=== PATIENT | male | born 1995 ===

== ENCOUNTER → 2021-08-21 15:47 | Outpatient (BNVA) | payer MEDICAID, SELFPAY | PROVIDERS: Visit Provider Surgery | DX: K42.9 Umbilical hernia without obstruction or gangrene (principal) | CPT/HCPCS: 99202 ==

== ENCOUNTER 2021-10-05 11:14 | Emergency (ER) | payer MEDICAID, SELFPAY ==
[2021-10-05 11:25] VITALS: BP 131/86; PULSE 104; RESP 20; TEMP 36.6; O2SAT 99; BMI 27.3
--- NOTE | 2021-10-05 13:07 | ED.URI ---
HPI - URI/Sore Throat General Chief Complaint: Upper Respiratory Symptoms Stated Complaint: sore throat body aches fever COVID exposed Time Seen by Provider: 10/05/21 12:13 Source: patient Mode of arrival: ambulatory Limitations: no limitations History of Present Illness HPI Narrative: 26-year-old male status he has 2 coworkers that test post COVID he has been having fever body aches nausea vomiting cough. States he is vaccinated for COVID denies any falls or injuries he states he is not taking medications he does smoke pack of cigarettes a day. MD elicited complaint: fever, cough, sore throat and sinus pain Related Data Home Medications Medication Instructions Recorded Confirmed No Known Home Meds 08/21/21 08/21/21 Allergies Allergy/AdvReac Type Severity Reaction Status Date / Time No Known Allergies Allergy Unverified 06/16/20 17:41 Review of Systems Review of Systems: Review of systems: General: Fever cough and body aches with likely COVID infection he denies any falls Musculoskeletal: Denies back pain or or other injuries HEENT: headache, runny nose, ear pain Respiratory: shortness of breath, cough Cardiovascular: no chest pain or palpitations : denies dysuria, frequency Abdomen: nausea vomiting denies abdominal pain Extremities: no swelling, no pain Skin: no diaphoresis Yes all other systems are reviewed and are negative PMFSH Past Medical History Medical History (Updated 10/05/21 @ 13:10 by Fawad Berrios DO) Umbilical hernia Surgical History History of surgical procedure on mouth Social History Social History Alcohol intake: never Patient Tobacco Use Status: Never used Tobacco Physical Exam Vital Signs: Vital Signs: Last Vital Signs Temp 98 F 10/05/21 11:25 Pulse 104 H 10/05/21 11:25 Resp 20 10/05/21 11:25 BP 131/86 10/05/21 11:25 Pulse Ox 99 10/05/21 11:25 BMI result Body Mass Index 27.3 General: Well-appearing well-nourished in no signs of distress HEENT: Normocephalic atraumatic Neck: No signs of JVD, no masses no tenderness or lymphadenopathy Cardiovascular: Regular rate and rhythm Respiratory: Clear to auscultation bilaterally Abdomen: Soft nontender no masses Extremities: Normal pedal pulses no signs of edema Skin: Dry warm no rashes Back: No tenderness full ROM MDM - URI/Sore Throat MDM Narrative Medical decision making narrative: 26-year-old male exiting for COVID looks well I will give patient Tylenol he has not take anything past several days his last episode of vomiting 2 days ago he has been tolerating fluids and food well. In this patient who sent him anything that I will discharge home. Discharge Plan Discharge Clinical Impression: COVID-19 Patient Disposition: Home, Self-Care Instructions: COVID-19 (Coronavirus Disease 2019) (ED) Additional Instructions: Please call follow with her doctor if you have any other concerns please not hesitate to come back the emergency department. Prescriptions: No Action No Known Home Meds RF: 0
[2021-10-05 13:08] LABS: COVID-19 Test Positive (Negative); IDNOW Serial# 9DD0AD1C
[2021-10-05] MEDS: Acetaminophen 325 MG TABLET 650 MG PO (13:40)
[2021-10-05 13:46] LABS: Strep A Nucleic Acid Negative (Negative)
== END 2021-10-05 14:06 | disposition home or self-care (01) ==
LOC: HO.ED 13:24
PROVIDERS: Physician Assistant Medical; Emergency Provider Student in an Organized Health Care Education/Training Program
DX: U07.1 COVID-19 (principal)
CPT/HCPCS: 87635; 87651; 99283; 99284

== ENCOUNTER 2022-05-28 09:02 | Outpatient (REF) | payer MEDICAID, SELFPAY ==
[2022-05-28 09:29] LABS: COVID-19 Test Negative (Negative); IDNOW Serial# 55D5AD1C
== END 2022-05-28 09:03 | disposition home or self-care (01) ==
LOC: HO.LAB 09:02
PROVIDERS: Visit Provider Internal Medicine
DX: Z20.822 Contact with and (suspected) exposure to COVID-19 (principal)
CPT/HCPCS: 87635; C9803

== ENCOUNTER 2022-06-18 08:22 | Outpatient (REF) | payer MEDICAID, SELFPAY ==
[2022-06-18 08:59] LABS: COVID-19 Test Negative (Negative); IDNOW Serial# 9DB6401D
== END 2022-06-18 08:23 | disposition home or self-care (01) ==
LOC: HO.LAB 08:22
PROVIDERS: Visit Provider Internal Medicine
DX: Z20.822 Contact with and (suspected) exposure to COVID-19 (principal)
CPT/HCPCS: 87635; C9803

== ENCOUNTER 2022-06-27 08:20 | Outpatient (REF) | payer MEDICAID, SELFPAY ==
[2022-06-27 09:11] LABS: COVID-19 Test Negative (Negative)
== END 2022-06-27 08:21 | disposition home or self-care (01) ==
LOC: HO.LAB 08:20
PROVIDERS: Visit Provider Internal Medicine
DX: Z20.822 Contact with and (suspected) exposure to COVID-19 (principal)
CPT/HCPCS: 87635; C9803

== ENCOUNTER 2022-06-27 08:46 | Emergency (ER) | payer MEDICAID, SELFPAY ==
--- NOTE | ~2022-06-27 | XR_ITS ---
EXAMINATION: XR CHEST CLINICAL INFORMATION: Cough COMPARISON: None TECHNIQUE: Frontal view of the chest was obtained. FINDINGS: The lungs are clear. There is no airspace consolidation or groundglass opacity or effusion. The heart is normal in size. The hilar and mediastinal contours are normal. The costophrenic sulci are clear. The hilar and mediastinal contours and visualized bony structures are unremarkable. XR/XR chest 1V IMPRESSION: Unremarkable examination.
[2022-06-27 10:07] VITALS: BP 117/64; PULSE 67; RESP 18; TEMP 36.4; O2SAT 99; BMI 27.3
[2022-06-27 11:29] LABS: COVID-19 Test Negative (Negative); IDNOW Serial# 9DD0AD1C
--- NOTE | 2022-06-27 12:15 | ED_ITS ---
HPI - URI/Sore Throat General Chief Complaint: Upper Respiratory Symptoms Stated Complaint: sore throat, body aches Time Seen by Provider: 06/27/22 11:06 Source: patient Mode of arrival: ambulatory History of Present Illness HPI Narrative: 26-year-old male with no significant past medical history presenting to the ED complaining of subjective fever, chills, dry cough, rhinorrhea, sore throat, myalgias x1 week. Admits was exposed to COVID-19. Tested negative for COVID-19 on Saturday. Denies SOB, CP, abdominal pain, nausea/vomiting MD elicited complaint: fever, cough, sore throat, rhinorrhea and nasal congestion Onset (ago): week(s) Related Data Home Medications Medication Instructions Recorded Confirmed No Known Home Meds 08/21/21 08/21/21 Allergies Allergy/AdvReac Type Severity Reaction Status Date / Time No Known Allergies Allergy Verified 06/27/22 10:07 Review of Systems Review of Systems: Constitutional: +Subj Fever, + Chills ENT/Mouth: No Ear Pain, + Nasal Congestion, + sore throat, + Rhinorrhea, No Swallowing Difficulty Cardiovascular: No Chest Pain, No SOB Respiratory: + Cough, No Sputum, No Wheezing Gastrointestinal: No Nausea, No Vomiting, No Diarrhea, No Constipation, No Abdominal pain Genitourinary: No Dysuria, No Urinary Frequency, No Hematuria, No Urgency, No Flank Pain Musculoskeletal: No joint pain, + Myalgias, No Joint Swelling Skin: No Skin Lesions, No rash Neuro: No Weakness, No Numbness, No Paresthesias Yes all other systems are reviewed and are negative Constitutional: Constitutional: Reports as per [facility] Past Medical History Attestation statement: The following information was validated with the patient. Medical History Umbilical hernia Surgical History History of surgical procedure on mouth Social History Social History Alcohol intake: never Patient Tobacco Use Status: Never used Tobacco Advance Directives: No Advance Directives Information Provided: No Physical Exam Vital Signs: Vital Signs: Last Vital Signs Temp 97.6 F 06/27/22 10:07 Pulse 67 06/27/22 10:07 Resp 18 06/27/22 10:07 BP 117/64 06/27/22 10:07 Pulse Ox 99 06/27/22 10:07 O2 Del Method 06/27/22 10:07 BMI result Body Mass Index 27.3 Const: General: cooperative, healthy appearing and no acute distress Orientation/consciousness: patient oriented x3 Limitations: no limitations HEENT: Head: Yes normal to inspection and Yes atraumatic Ears: hearing grossly normal bilaterally and TM's normal bilaterally General nose exam: Normal external nose present Face and sinus: Yes normal facial exam Throat: Yes posterior oropharynx normal, Yes tonsils normal, Yes uvula midline, No abnormal tonsil and No peritonsillar mass Eyes: General: appearance normal, both eyes and all related structures EOM: EOMs intact bilaterally Neck: Neck: Yes normal visual inspection and Yes no meningeal signs Resp: Effort & Inspection: normal respiratory effort and no respiratory distress Auscultation: clear to auscultation bilaterally, no crackles, no rales, no rhonchi and no wheezes Cardio: Rate: regular rate Heart sounds: S1 normal heart sound present and S2 normal heart sound present GI: Inspection: Yes normal to inspection Palpation (GI): Soft to palpation, nontender, no guarding and not rigid Skin: Rashes: no rashes Wounds: no wounds Neuro: General: patient oriented x3, tone normal and no meningeal signs Gait exam (Neuro): Normal gait present Extrem: General: Yes normal to inspection Course Course Course Narrative: XR chest 1V IMPRESSION: Unremarkable examination. -COVID-19 negative MDM - URI/Sore Throat MDM Narrative Medical decision making narrative: 26-year-old male with no significant past medical history presenting to the ED complaining of subjective fever, chills, dry cough, rhinorrhea, sore throat, myalgias x1 week. Exam vital signs stable, NAD, nontoxic appearing, exam nonfocal, lungs CTA. Concern for viral illness including COVID-19 vs bronchitis. Rule out pneumonia. Low suspicion for ACS/PE Plan: COVID-19 testing, CXR Differential Diagnosis Differential diagnosis: Likely upper respiratory infection, sinusitis, viral infection, bronchitis, influenza and pharyngitis Medical Records Attestation: I reviewed the patient's medical records. Lab Data Attestation: I reviewed the patient's lab results. Labs: Lab Results 06/27/22 Range/Units 10:48 COVID-19 ([facility]ENNY) Negative (Negative) COVID-19 Clin Com See Note Discharge Plan Discharge Clinical Impression: Viral infection Patient Disposition: Home, Self-Care Instructions: Viral Syndrome (ED) Additional Instructions: Your chest x-ray is unremarkable. you tested negative for COVID-19 and strep throaat You likely have a viral illness Rest. Stay hydrated. Take Tylenol and Motrin as needed. Follow up with her doctor. Return to the ED symptoms persist or worsen Prescriptions: No Action No Known Home Meds Referrals: [facility] [Primary Care Provider] - 1 week Stand Alone Forms: Work/School Release
[2022-06-27 13:13] LABS: Strep A Nucleic Acid Negative (Negative)
[2022-06-27 13:55] VITALS: BP 119/72; PULSE 68; RESP 18; TEMP 36.7; O2SAT 100
== END 2022-06-27 13:58 | disposition home or self-care (01) ==
PROVIDERS: Physician Assistant; Emergency Provider Emergency Medicine
DX: B34.9 Viral infection, unspecified (principal); J02.9 Acute pharyngitis, unspecified; Z20.822 Contact with and (suspected) exposure to COVID-19
CPT/HCPCS: 36415; 71045; 87635; 87651; 99283

== ENCOUNTER → 2022-08-08 14:05 | Outpatient (BNVA) | payer MEDICAID, SELFPAY | PROVIDERS: Visit Provider Surgery | DX: K42.9 Umbilical hernia without obstruction or gangrene (principal) | CPT/HCPCS: 99212 ==

== ENCOUNTER 2022-08-21 06:36 | Day surgery (SDC) | payer MEDICAID, SELFPAY ==
[2022-08-14 12:29] VITALS: BMI 26.1
--- NOTE | 2022-08-20 08:49 | HO.ANESPROP2 ---
Documented by User: Tamara Mccauley NP 08/20/22 08:49 HPI - Anesthesia Eval Consult details Narrative: 27yo M for Hernia Repair Umbilical, possible mesh PMFSH Active Problems Active Problems: All Active Problems (Updated 08/14/22 @ 12:26 by Suma Jean, LORRI) COVID-19 (Acute) Umbilical hernia (Acute) Past Medical History Medical History History of COVID-19 Umbilical hernia Surgical History Surgical History History of surgical procedure on mouth Social History Social History Alcohol intake: never Patient Tobacco Use Status: Never used Tobacco Meds Allergies Allergy/AdvReac Type Severity Reaction Status Date / Time No Known Allergies Allergy Verified 06/27/22 10:07 Exam Exam Date and Time: August 20, 2022 0849 Height,Weight and Vital Signs: Height 5 ft 8 in Weight 78.018 kg Assessment and Plan Assessment Anesthesia Assessment: Chart Reviewed Documented by User: Dante Ortiz MD 08/21/22 16:05 PMFSH Past Medical History Medical History History of COVID-19 Umbilical hernia Family History Family history of problems with anesthesia: No Surgical History Surgical History History of surgical procedure on mouth History of Problems with Anesthesia: No Social History Social History Alcohol intake: never Patient Tobacco Use Status: Never used Tobacco Meds Allergies Allergy/AdvReac Type Severity Reaction Status Date / Time No Known Allergies Allergy Verified 06/27/22 10:07 Exam Airway Mallampati Class: III TM Dist: >3cm Neck ROM: Full Loose/Missing/Broken Teeth: Yes Heart: S1,S2 Lungs: b/l breath sounds Assessment and Plan Assessment Anesthesia Assessment: Anesthesia Plan Discussed Final Anesthetic Review Family History of Problems with Anesthesia: No History of Problems with Anesthesia: No NPO: Yes ASA Class: II Final Preanesthetic Review: Meds/Allgs Chart Reviewed, Consent Obtained/Reviewed and Anes Risks/Benef Reviewed Patient Risk: Intermediate Procedure Risk: Intermediate Anesthetic Plan Anesthetic Plan: GA Disposition: Standard PACU
[2022-08-21] VITALS (17 sets, daily range): BP systolic 108–123; BP diastolic 64–74; PULSE 47–85; RESP 15–18; TEMP 36.4–37.1; O2SAT 94–100; BMI 25.5; BMI 26.3
[2022-08-21] MEDS: Lactated Ringers 1,000 ML 100 ML IVCONT (07:12)
--- NOTE | 2022-08-21 08:37 | MHC.SHP ---
Pre-Procedural Eval Section A Date of Service: 08/21/22 The patient is an INPATIENT: No Changes since office visit: No Cold of Flu in the past 2 weeks, No New Medical Problems, No Changes in Medication and No Patient answered all questions The History & Physical has been completed within 30 days and I have reviewed it.: Yes Section B Chief Complaint: Umbilical hernia without obstruction or gangrene Allergies: Allergies Allergy/AdvReac Type Severity Reaction Status Date / Time No Known Allergies Allergy Verified 06/27/22 10:07 Plan I have reviewed the history and physical and performed a pertinent physical examination on my patient. No changes have occurred unless specified.
--- NOTE | 2022-08-21 09:50 | W.PM.OPN ---
Operative Note Operative Note Date of Service: 08/21/22 Narrative: Preop diagnosis: Umbilical hernia Postop diagnosis: The same Procedure: Repair of umbilical hernia with Ventralex mesh Surgeon: Ramon Meraz MD assistant store director: SARAH Springer The patient is a 27-year-old male with a small umbilical hernia. In view of symptoms he wanted to proceed with repair. He understood the technique of the procedure. He was aware of the risks, benefits, and alternatives. He was brought to the operating room and placed supine under general anesthesia via laryngeal mask airway. The abdomen was prepped and draped in the usual sterile fashion. A surgical time-out was done. The patient received cefazolin 2 g IV preoperatively. I infiltrated the planned line of vision with lidocaine 1%. I made a small skin incision in the infraumbilical margin in a transverse curvilinear fashion using blade 15. This was carried down with electrocautery through the full-thickness of the skin and part of the subcutaneous fat. I then proceeded to dissect the umbilicus off as a flap using sharp dissection with Metzenbaum scissor to lift this off of the hernia contents. The hernia contents were seen and was noted to be just fatty tissue. I dissected this down to the fascial defect and divided adhesions to the edges of the fascia using Metzenbaum scissors until I was completely able to reduce this to the defect. I applied Abdelrahman clamps to retract the fascia and exposed underside. I made sure we had good margins for the mesh. I then positioned a small-sized Ventralex mesh under the fascia to cover the defect. I secured the Prolene straps of the mesh to the fascial edge on both sides with Prolene 2 sutures. I closed the fascia with a [id number] Dexon 0 stitch. The umbilicus was tacked down to the fascia with the Dexon 3-0 stitch to re-create the dimple. The subcutaneous layer was reapposed with Dexon 3-0 interrupted sutures. Skin closure was achieved with Dexon 4-0 subcuticular running stitch. The area was infiltrated with Marcaine 0.5% for postop analgesia. Dressings were applied. The procedure was completed. He tolerated the procedure well. There were no immediate complications. Initial and final counts of sponges and instruments were correct. Estimated blood loss less than 5 cc. The patient was extubated the difficulty and transferred to the recovery room with stable vital signs.
[2022-08-21] MEDS: Acetaminophen 325 MG TABLET 650 MG PO (10:29)
[2022-08-21] MEDS: fentaNYL citrate/PF 100 MCG/2 ML VIAL 25 MCG IVPUSH ×3 (10:29→11:11)
[2022-08-21] MEDS: oxyCODONE HCl Immed Release 5 MG TABLET PO (10:30)
[2022-08-21] MEDS: HYDROmorphone HCl 1 MG/ML SYRINGE 0.25 MG IVPUSH (11:42)
== END 2022-08-21 12:25 | disposition home or self-care (01) ==
PROVIDERS: Visit Provider Surgery
PROC: (CPT 49585; principal; 2022-08-21 08:40)
DX: K42.9 Umbilical hernia without obstruction or gangrene (principal)
CPT/HCPCS: 49585; C1781; J0690; J1100; J1170; J2250; J2405; J2795; J3010

== ENCOUNTER 2022-11-26 08:37 | Emergency (ER) | payer MEDICAID, SELFPAY ==
--- NOTE | ~2022-11-26 | XR_ITS ---
EXAMINATION: XR SHOULDER, LEFT CLINICAL INFORMATION: Pain COMPARISON: None TECHNIQUE: AP external rotation, Grashey, scapular Y, and axillary views of the left shoulder. FINDINGS: The bones and soft tissues are normal. No fracture. Glenohumeral and acromioclavicular alignment is anatomic with normal joint space. No abnormal soft tissue calcifications. XR/XR shoulder LT min 2V IMPRESSION: Normal left shoulder.
--- NOTE | ~2022-11-26 | XR_ITS ---
EXAMINATION: XR ELBOW, LEFT CLINICAL INFORMATION: Pain COMPARISON: None TECHNIQUE: AP, lateral, and oblique views of the left elbow. FINDINGS: The bones and soft tissues are normal. No fracture or joint effusion. Alignment is anatomic. Joint spaces are maintained. XR/XR elbow LT min 3V IMPRESSION: Normal left elbow.
--- NOTE | ~2022-11-26 | US_ITS ---
EXAMINATION: US VENOUS WITH DOPPLER UPPER EXTREMITY, left upper extremity CLINICAL INFORMATION: Pain COMPARISON: None TECHNIQUE: Ultrasound of the upper extremity is performed using compression sonography and color and pulse Doppler flow with assessment of augmentation of flow. There is also imaging and Doppler assessment of the jugular and subclavian veins. Spectral analysis with color-flow imaging is performed. FINDINGS: Respiratory variation, normal compression, and augmented flow are noted throughout the upper extremity including the axillary, brachial, cubital, veins. There is normal flow in the internal jugular and subclavian veins. There is no visible deep or superficial thrombophlebitis. Left cephalic vein not visualized. If the patient's symptoms progress, a followup ultrasound in 5 -7 days might be of value to exclude proximal propagation from a nonvisualized distal arm vein. US/US venous duplex UE LT IMPRESSION: No DVT demonstrated in the left upper extremity. Limitation of the study, cephalic vein not visualized.
[2022-11-26 08:41] VITALS: BP 129/81; PULSE 91; RESP 16; TEMP 37; O2SAT 99; BMI 25.8
[2022-11-26 09:54] LABS: Hematocrit 47.4 % (42.0-52.0); Hemoglobin 16.5 g/dl (14.0-18.0); Mean Corpuscular HGB Conc 34.8 g/dl (31.0-36.0); Mean Corpuscular Hemoglobin 31.7 pg (27.0-33.0); Mean Platelet Volume 10.8 fL (9.4-12.4); Platelet Count 248 X10*3/uL (160-400); Red Blood Count 5.21 X10*6/uL (4.60-5.80); Red Cell Distribution Width 11.7 % (11.0-16.0); White Blood Count 12.7 X10*3/uL (4.8-10.8)
[2022-11-26 10:14] LABS: Anion Gap 12 (12-20); Blood Urea Nitrogen 18 mg/dL (9-16); Calcium 9.5 mg/dL (8.4-10.2); Carbon Dioxide 26 mmol/L (22-29); Chloride 106 mmol/L (96-108); Creatinine Clr Calc Pharmacy 126.6; Estimated Glomerular Filt Rate > 60; Glucose Random 98 mg/dL (60-115); Potassium 4.5 mmol/L (3.3-5.1); Sodium 139 mmol/L (135-145)
[2022-11-26 10:30] LABS: Influenza A PCR NEGATIVE (Negative); Influenza B PCR NEGATIVE (Negative); Resp Syncy Virus RNA Qual PCR NEGATIVE (Negative); SARS COV2 PCR INHOUSE NEGATIVE (Negative)
[2022-11-26 10:39] VITALS: BP 111/58; PULSE 61; RESP 14; TEMP 36.8; O2SAT 97
--- NOTE | 2022-11-26 10:57 | ED_ITS ---
HPI - General Adult General Chief complaint: General Medical Stated complaint: l arm pain Time Seen by Provider: 11/26/22 10:31 Source: patient History of Present Illness HPI narrative: Patient states he has had left arm pain for the past few days. Start in his elbow but now is in his whole upper arm including his shoulder. No causative factors or recent injuries or change in activity. No history of similar problems. Father with a history of pain in his joints with a question of gout. Patient does describe recent illness and that yesterday he had nausea vomiting diarrhea with nasal congestion and fever. His arm pain started prior to this. 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 He presents today because it is to the point where he is unable to lift his arm up over his head without pain. Related Data Previous Rx's Medication Instructions Recorded ibuprofen 600 mg tablet 600 mg PO Q6H PRN pain #30 tabs 08/21/22 oxycodone-acetaminophen 5 mg-325 1 tab PO Q4-6H PRN pain #30 tabs 08/21/22 mg tablet (Percocet) cyclobenzaprine 10 mg tablet 10 mg PO TID PRN muscle spasm #20 11/26/22 tabs ibuprofen 800 mg tablet 800 mg PO TID PRN pain #30 tabs 11/26/22 ondansetron 4 mg disintegrating 4 mg PO Q8H PRN nausea and 11/26/22 tablet vomiting #14 tabs Allergies Allergy/AdvReac Type Severity Reaction Status Date / Time No Known Allergies Allergy Verified 09/03/22 14:28 Review of Systems Constitutional: Comments: Fevers and chills yesterday. None today. Cardiovascular: Comments: No chest pain Respiratory: Comments: No cough Gastrointestinal: Comments: Nausea vomiting diarrhea yesterday. No abdominal pain Musculoskeletal: Comments: Left arm pain as described Neurologic: Comments: No focal weakness PMFSH Past Medical History Medical History History of COVID-19 Umbilical hernia Surgical History History of surgical procedure on mouth Social History Social History Alcohol intake: never Patient Tobacco Use Status: Never used Tobacco Smoked in Last 30 Days: Yes Substance Use Type: Marijuana Advance Directives: No Advance Directives Information Provided: No Physical Exam ED Vital Signs: Vital Signs - 24 hr 11/26/22 08:41 11/26/22 10:39 11/26/22 12:32 Temperature 98.6 F 98.2 F 97.5 F Pulse Rate 91 61 57 Respiratory Rate 16 14 16 Blood Pressure 129/81 111/58 L 141/69 H Pulse Oximetry 99 97 99 Oxygen Delivery Method Room Air Room Air Room Air BMI result Body Mass Index 25.8 Const Other: Awake and alert. No acute distress Resp Other: Clear and equal bilaterally Cardio Other: A right regular rate and rhythm without murmurs rubs gallops GI Other: Abdomen soft nontender nondistended Skin Other: Warm pink and dry without rash. He does not have increased warmth or erythema in his left arm. Neuro Other: No focal deficits Extrem Other: Left arm with limited range of motion at shoulder secondary to discomfort. No crepitus or deformity noted. No obvious joint effusion. Left elbow also with mildly decreased range of motion and some pain on range of motion. There is no obvious effusion swelling or deformity. Distal circulation sensation motor is all intact Medications Administered Discontinued Medications Generic Name Dose Route Start Last Admin Trade Name Freq PRN Reason Stop Dose Admin Sodium Chloride 1,000 mls @ 999 mls/hr 11/26/22 11:00 11/26/22 12:26 Ns IV 11/26/22 12:00 999 mls/hr .Q1H1M BARTOLOME Administration Ketorolac Tromethamine 30 mg 11/26/22 10:53 11/26/22 12:23 Ketorolac Tromethamine 15 Mg/Ml Vial IVPUSH 11/26/22 10:54 30 mg ONCE ONE Administration Ondansetron HCl 4 mg 11/26/22 10:53 11/26/22 12:23 Ondansetron Hcl 4 Mg/2 Ml Vial IVPUSH 11/26/22 10:54 4 mg ONCE ONE Administration Medical Decision Making Medical Decision Making MDM Narrative: Patient with atraumatic left upper arm pain including elbow and shoulder joints. No obvious clinical evidence for infection. He has secondary issue of nausea vomiting diarrhea with fevers that started yesterday, this appears to be u nrelated to his arm pain is it started afterwards and is improving little bit per patient. Rhinorrhea as other complaint. Will treat with IV fluids and anti-inflammatories. X-ray and ultrasound to rule out DVT and or arthritic changes. Other elements for differential would be gout, line, septic joint, all of which appear very unlikely based on exam. Will hold off on further lab work at this time. 13:38. Patient is feeling better. Ultrasound is normal without evidence for DVT. X-ray is likewise are normal. Stable for discharge home Lab Data 11/26/22 09:48 11/26/22 09:48 Labs: Lab Results 11/26/22 11/26/22 11/26/22 Range/Units 09:48 09:48 09:48 WBC 12.7 H (4.8-10.8) X10*3/uL RBC 5.21 (4.60-5.80) X10*6/uL Hgb 16.5 (14.0-18.0) g/dl Hct 47.4 (42.0-52.0) % MCV 91.0 (80.0-98.0) fL MCH 31.7 (27.0-33.0) pg MCHC 34.8 (31.0-36.0) g/dl RDW 11.7 (11.0-16.0) % Plt Count 248 (160-400) X10*3/uL MPV 10.8 (9.4-12.4) fL Absolute Nucleated RBC 0.000 (0.0-0.012) X10*3/uL Nucleated RBC % (auto) 0.0 (0.0-0.2) /100WBC Sodium 139 (135-145) mmol/L Potassium 4.5 (3.3-5.1) mmol/L Chloride 106 (96-108) mmol/L Carbon Dioxide 26 (22-29) mmol/L Anion Gap 12 (12-20) BUN 18 H (9-16) mg/dL Creatinine 0.84 (0.5-1.4) mg/dL Estim Creat Clear Calc 126.6 Estimated GFR > 60 Random Glucose 98 (60-115) mg/dL Calcium 9.5 (8.4-10.2) mg/dL Influenza Type A (PCR) NEGATIVE (Negative) Influenza Type B (PCR) NEGATIVE (Negative) RSV RNA Qual (PCR) NEGATIVE (Negative) SARS-CoV-2 RNA (RT-PCR) NEGATIVE (Negative) Discharge Plan Discharge Clinical Impression: Arm pain, Vomiting Patient Disposition: Home, Self-Care Additional Instructions: Follow-up with [facility] for your arm pain. [phone] Prescriptions: New ibuprofen 800 mg tablet 800 mg PO TID PRN (Reason: pain) Qty: 30 0RF cyclobenzaprine 10 mg tablet 10 mg PO TID PRN (Reason: muscle spasm) Qty: 20 0RF ondansetron 4 mg tablet,disintegrating 4 mg PO Q8H PRN (Reason: nausea and vomiting) Qty: 14 0RF No Action oxycodone-acetaminophen [Percocet] 5-325 mg tablet 1 tab PO Q4-6H PRN (Reason: pain) Qty: 30 0RF Rx Instructions: Partial Fill upon patient request. ibuprofen 600 mg tablet 600 mg PO Q6H PRN (Reason: pain) Qty: 30 0RF
[2022-11-26] MEDS: ondansetron HCL 4 MG/2 ML VIAL IVPUSH (12:23)
[2022-11-26] MEDS: Ketorolac Tromethamine 15 MG/ML VIAL 30 MG IVPUSH (12:23)
[2022-11-26] MEDS: 0.9 % Sodium Chloride 1,000 ML 999 ML IV (12:26)
[2022-11-26 12:32] VITALS: BP 141/69; PULSE 57; RESP 16; TEMP 36.4; O2SAT 99
== END 2022-11-26 14:11 | disposition home or self-care (01) ==
PROVIDERS: Emergency Provider Emergency Medicine
DX: M79.602 Pain in left arm (principal); R11.2 Nausea with vomiting, unspecified; Z20.822 Contact with and (suspected) exposure to COVID-19; Z20.828 Contact with and (suspected) exposure to other viral communicable diseases
CPT/HCPCS: 0241U; 73030; 73080; 80048; 85027; 93971; 96374; 96375; 99284; J1885; J2405

== ENCOUNTER 2023-05-28 07:04 | Emergency (ER) | payer MEDICAID, SELFPAY ==
[2023-05-28 07:14] VITALS: BP 117/79; PULSE 90; RESP 16; TEMP 36.6; O2SAT 96; BMI 24.3
[2023-05-28 07:46] LABS: IDNOW Serial# 9DD0AD1C; Strep A Nucleic Acid Negative (Negative)
--- NOTE | 2023-05-28 07:52 | ED_ITS ---
HPI - General Adult General Chief complaint: General Medical Stated complaint: Sore throat/Body aches Time Seen by Provider: 05/28/23 07:20 Source: patient Mode of arrival: ambulatory History of Present Illness HPI narrative: 27-year-old male, everyday smoker, presents with subjective fevers, sore throat, body aches, cough since yesterday denies any sick contacts. Related Data Previous Rx's Medication Instructions Recorded ibuprofen 600 mg tablet 600 mg PO Q6H PRN pain #30 tabs 08/21/22 oxycodone-acetaminophen 5 mg-325 1 tab PO Q4-6H PRN pain #30 tabs 08/21/22 mg tablet (Percocet) cyclobenzaprine 10 mg tablet 10 mg PO TID PRN muscle spasm #20 11/26/22 tabs ibuprofen 800 mg tablet 800 mg PO TID PRN pain #30 tabs 11/26/22 ondansetron 4 mg disintegrating 4 mg PO Q8H PRN nausea and 11/26/22 tablet vomiting #14 tabs Allergies Allergy/AdvReac Type Severity Reaction Status Date / Time No Known Allergies Allergy Verified 09/03/22 14:28 Review of Systems Review of Systems: Pertinent positives and negatives as stated in HPI [facility] Past Medical History Source: nursing notes reviewed Medical History History of COVID-19 Umbilical hernia Surgical History History of surgical procedure on mouth Social History Social History Alcohol intake: current Alcohol intake frequency: a few times a week Alcohol type: beer and hard liquor Patient Tobacco Use Status: Never used Tobacco Smoked in Last 30 Days: No Use of substances other than those prescribed or required for medical reasons: No Substance Use Type: Marijuana Advance Directives: No Physical Exam ED Vital Signs: Vital Signs - 24 hr 05/28/23 07:14 Temperature 97.9 F Pulse Rate 90 Respiratory Rate 16 Blood Pressure 117/79 Pulse Oximetry 96 Oxygen Delivery Method Room Air BMI result Body Mass Index 24.3 VITAL SIGNS: Reviewed. GENERAL: Well developed, well nourished, in no acute distress. HEAD: Normocephalic/atraumatic EYES: PERRLA, EOMI EARS: Ext canals without abnormality, TMs non-bulging and non-erythematous NOSE: Nares patent bilateral OROPHARYNX: no oral lesions noted, posterior pharynx clear and non-erythematous without noted tonsillar enlargement/erythema/exudates NECK: Supple, no adenopathy LUNGS: Normal breath sounds, no tachypnea/wheeze/rhonchi/rales. SpO2<96> CARDIOVASCULAR: Regular rate and rhythm without noted murmurs ABDOMEN: Soft, non-tender, non-distended with bowel sounds. MUSCULOSKELETAL: No tenderness, deformities, or effusions noted on gross inspection. EXTREMITIES: No cyanosis, clubbing or edema. SKIN: Inspection of the skin reveals no rashes NEUROLOGIC: Alert and oriented x 4. Strength and sensation to light touch were grossly intact x 4. Medications Administered Discontinued Medications Generic Name Dose Route Start Last Admin Trade Name Freq PRN Reason Stop Dose Admin Acetaminophen 975 mg 05/28/23 07:54 05/28/23 08:31 Acetaminophen 325 Mg Tablet PO 05/28/23 07:55 975 mg ONCE ONE Administration Benzocaine 1 lozenge 05/28/23 07:54 05/28/23 08:31 Throat Lozenge, Medicated Lozenge MUCOUS MEM 05/28/23 07:55 1 lozenge ONCE ONE Administration Ibuprofen 400 mg 05/28/23 07:54 05/28/23 08:31 Ibuprofen 400 Mg Tablet PO 05/28/23 07:55 400 mg ONCE ONE Administration Medical Decision Making Medical Decision Making [facility] Narrative: 27-year-old male with history and clinical presentation, DDX: Viral illness, strep pharyngitis. Patient received Cepacol and combination analgesics. Review of all investigations demonstrates negatives strap and a viral testing to include RSV/influenza/COVID-19 are negative. Patient is otherwise discharged ho nd. Differential Diagnosis Differential Diagnoses: The differential diagnosis associated with the presentation includes Please see the discussion above Admission/Observation Consideration of admission/observation: Escalation of care including admission/observation considered Please see the discussion above Lab Data [facility] Lab Attestation statement: I reviewed the patient's lab results. Please see the discussion above Labs: Lab Results 05/28/23 05/28/23 Range/Units 07:27 07:27 Influenza Type A (PCR) NEGATIVE (Negative) Influenza Type B (PCR) NEGATIVE (Negative) RSV RNA Qual (PCR) NEGATIVE (Negative) SARS-CoV-2 RNA (RT-PCR) NEGATIVE (Negative) S. pyogenes GrpA NAFISA Negative (Negative) External Record Review External record reviewed: Outpatient record and Prior outpatient labs Discharge Plan Discharge Clinical Impression: Viral illness Patient Disposition: Home, Self-Care Instructions: Viral Syndrome (ED) Additional Instructions: 1. Recommend increase the amount of water that you drink, use [id number] Tylenol/ibuprofen for body aches and any temperatures greater than 100.4. Return to the ER for any worsening symptoms. Prescriptions: No Action ibuprofen 800 mg tablet 800 mg PO TID PRN (Reason: pain) Qty: 30 0RF cyclobenzaprine 10 mg tablet 10 mg PO TID PRN (Reason: muscle spasm) Qty: 20 0RF ondansetron 4 mg tablet,disintegrating 4 mg PO Q8H PRN (Reason: nausea and vomiting) Qty: 14 0RF oxycodone-acetaminophen [Percocet] 5-325 mg tablet 1 tab PO Q4-6H PRN (Reason: pain) Qty: 30 0RF Rx Instructions: Partial Fill upon patient request. ibuprofen 600 mg tablet 600 mg PO Q6H PRN (Reason: pain) Qty: 30 0RF Referrals: [facility] [Primary Care Provider] -
[2023-05-28] MEDS: Acetaminophen 325 MG TABLET 975 MG PO (08:31)
[2023-05-28] MEDS: Throat Lozenge, Medicated LOZENGE 1 LOZENGE MUCOUS MEM (08:31)
[2023-05-28] MEDS: Ibuprofen 400 MG TABLET PO (08:31)
[2023-05-28 09:07] VITALS: BP 116/67; PULSE 67; RESP 18; TEMP 36.3; O2SAT 97
[2023-05-28 09:07] LABS: Influenza A PCR NEGATIVE (Negative); Influenza B PCR NEGATIVE (Negative); Resp Syncy Virus RNA Qual PCR NEGATIVE (Negative); SARS COV2 PCR INHOUSE NEGATIVE (Negative)
--- NOTE | 2023-05-28 09:09 | PC.NURSE ---
reports sore throat since ystdy. no cough/vomiting. general malaise/fatigue. occasional cough. pt reported subjective fever yesterday- afebrile now. no respir distress. talks well w/o airway issues. +CSM. no cp/sob/sepulveda. SÁNCHEZ equally
== END 2023-05-28 09:17 | disposition home or self-care (01) ==
PROVIDERS: Emergency Provider Student in an Organized Health Care Education/Training Program
DX: J02.9 Acute pharyngitis, unspecified (principal); B34.9 Viral infection, unspecified; M79.10 Myalgia, unspecified site; Z20.822 Contact with and (suspected) exposure to COVID-19; Z20.828 Contact with and (suspected) exposure to other viral communicable diseases; Z79.899 Other long term (current) drug therapy
CPT/HCPCS: 0241U; 87651; 99283; 99284